=== PATIENT | female | born 1995 | race African-American/Black ===

== ENCOUNTER 2017-12-24 14:31 | Emergency (ER) | payer BC ==
[2017-12-24 15:51] LABS: #Eosinphils 0.3 thou/uL (0.0-0.7); #Lymphocytes 2.3 thou/uL (1.20-3.40); #Monocytes 0.4 thou/uL (0.11-0.59); #Neutrophils 4.3 thou/uL (1.40-6.50); %Basophils 0.6 % (0.0-1.0); %Eosinophils 3.7 % (0.0-10.0); %Lymphocytes 31.3 % (21.0-51.0); %Monocytes 5.7 % (0.0-10.0); %Neutrophils 58.7 % (42.0-75.0); Hemoglobin 9.9 g/dL (12.0-16.0); Mean Corpuscular HGB CONC 32.4 g/dL (32.0-36.0); Mean Corpuscular Hemoglobin 26.5 pg (27.0-31.0); Mean Corpuscular Volume 81.8 fL (78.0-98.0); Mean Platelet Volume 8.9 fL (7.4-10.4); Platelet Count 340 thou/uL (130-400); RBC Distribution Width 15.5 % (11.5-14.5); Red Blood Cell (RBC) Count 3.72 mill/uL (4.20-5.40); White Blood Cell (WBC) Count 7.3 thou/uL (4.8-10.8)
[2017-12-24 15:55] LABS: BHCG - Serum Negative (NEGATIVE); Pregs Control Background? CLEAR/WHITE (CLR/WHITE); Pregs Control Bar Appear? YES (CONTROL BAR)
[2017-12-24 16:26] LABS: Thyroid Stimulating Hormone 48.2557 uIU/mL (0.35-4.94)
--- NOTE | 2017-12-24 17:38 | ULT ---
ULTRASOUND PELVIC ULTRASOUND TRANSVAGINAL DOPPLER DUPLEX: 12/24/17 HISTORY: 22-year-old female with menometrorrhagia. Vaginal bleeding for two months. TECHNIQUE: Transabdominal transducer used to evaluate intrapelvic contents using the urinary bladder as an acous tic window. Endovaginal transducer used to visualize intrapelvic contents in greater detail. Color fl ow Doppler and Pulsed Doppler spectral waveform analysis of ovaries. FINDINGS: Uterus: 7 x 4 x 4.5 cm. Endometrial stripe: 1.1 cm (11 mm). Uterine fibroids: None identified. Right ovary: 3.3 x 3.0 x 2.9 cm. Left ovary: 3.4 x 2.2 x 2.4 cm. Blood flow demonstrated in both ovaries by doppler. 2.5 x 2.4 x 2.0 cm right ovarian cyst. 2 x 1.5 x 1.5 cm round hyperechoic, nonshadowing lesion in left ovary. Free fluid in the cul-de-sac: None. IMPRESSION: 1) 11 mm endometrial stripe. 2) 2.5 cm right ovarian cyst. 3) 2 cm hyperechoic mass in the left ovary. Differential diagnosis is endometrioma versus hemorrhagic ovarian cyst. Recommend followup pelvic and transvaginal ultrasound in six weeks. AUBREY Mancia POS: [facility]
[2017-12-27 13:19] LABS: Chlamydia by PCR Not Detected (NotDetected); GC by PCR Not Detected (NotDetected)
== END 2017-12-24 18:57 | disposition home or self-care (01) ==
LOC: ERS 14:31
DX: N93.9 Abnormal uterine and vaginal bleeding, unspecified (principal); D64.9 Anemia, unspecified; D62 Acute posthemorrhagic anemia; N76.0 Acute vaginitis; E03.9 Hypothyroidism, unspecified; N83.201 Unspecified ovarian cyst, right side
CPT/HCPCS: 36415; 76856; 84439; 84443; 84703; 85025; 86850; 86900; 86901; 87480; 87491; 87510; 87591; 87660

== ENCOUNTER 2018-08-07 22:54 | Observation (INO) | payer SELFPAY ==
--- NOTE | 2018-08-07 23:41 | RAD ---
EXAM: CHEST ONE VIEW: History: Dizziness, feeling faint. FINDINGS: Minimal cardiomegaly. No confluent pneumonia, overt edema, or pleural effusion. IMPRESSION: Minimal cardiomegaly. No acute intrathoracic disease. POS: [facility]
[2018-08-08 00:01] LABS: ALT (SGPT) 10 U/L (8-55); AST (SGOT) 12 U/L (5-34); Albumin 3.8 g/dL (3.5-5.0); Alkaline Phosphatase 53 U/L (40-150); Anion Gap 10 mmol/L (10-20); BUN (Urea Nitrogen) 11 mg/dL (7.0-18.7); Bilirubin, Total 0.4 mg/dL (0.2-1.2); Calc. Creatinine Clearance 0 mL/min (70-130); Calcium 8.8 mg/dL (7.8-10.44); Carbon Dioxide 24 mmol/L (22-29); Chloride 110 mmol/L (98-107); Estimated GFR-MDRD Greater than 90; Globulin 3.4 g/dL (2.4-3.5); Glucose 87 mg/dL (70-105); Potassium 3.9 mmol/L (3.5-5.1); Protein, Total 7.2 g/dL (6.0-8.3); Sodium 140 mmol/L (136-145)
[2018-08-08 00:02] LABS: #Basophils 0.1 thou/uL (0.0-0.2); #Eosinphils 0.3 thou/uL (0.0-0.7); #Monocytes 0.5 thou/uL (0.11-0.59); #Neutrophils 4.6 thou/uL (1.40-6.50); %Eosinophils 3.7 % (0.0-10.0); %Lymphocytes 35.4 % (21.0-51.0); %Monocytes 5.7 % (0.0-10.0); %Neutrophils 54.2 % (42.0-75.0); Anisocytosis MODERATE=16-30 cells (100X) (0-5/hpf); Elliptocytes SLIGHT = 2-5 cells (100X) (0-1/hpf); Hemoglobin 7.8 g/dL (12.0-16.0); MDiff Complete? YES; Mean Corpuscular HGB CONC 28.3 g/dL (32.0-36.0); Mean Corpuscular Volume 63.6 fL (78.0-98.0); Mean Platelet Volume 6.7 fL (7.4-10.4); Microcytosis SLIGHT = 6-15 cells (100X) (0-5/hpf); Platelet Count 374 thou/uL (130-400); RBC Distribution Width 19.5 % (11.5-14.5); Red Blood Cell (RBC) Count 4.31 mill/uL (4.20-5.40); Reflex for Review?? YES; White Blood Cell (WBC) Count 8.5 thou/uL (4.8-10.8)
[2018-08-08 00:22] LABS: CKMB 0.9 ng/mL (0-6.6)
[2018-08-08] MEDS ORDERED: Aspirin Chewable 81 MG TAB ONE (00:40)
[2018-08-08 03:17] VITALS: BMI 46.6
[2018-08-08 03:19] LABS: Troponin I 0.146 ng/mL (< 0.028)
[2018-08-08] MEDS ORDERED: Acetaminophen 325 MG TAB PO PRN (04:30)
[2018-08-08] MEDS ORDERED: Senokot S 8.6-50 MG TAB PO PRN (04:30)
[2018-08-08] MEDS ORDERED: Bisacodyl 5 MG TAB PO PRN (04:30)
--- NOTE | 2018-08-08 05:38 | HP ---
CHIEF COMPLAINT: Shortness of breath and palpitations. HISTORY OF PRESENT ILLNESS: The patient is a 22-year-old female with history of hypothyroidism and iron deficiency anemia, who presents to the hospital with complaints of shortness of breath and worsening palpitations. The patient stated that she has been off her medications, especially her Synthroid for quite a long time due to insurance purposes and she has been feeling on and off some shortness of breath and palpitations in the past. However, she states that today her palpitations got severe to the point that concerned her, so she came into the ER for further evaluation. She denies any chest tightness, any nausea, vomiting, or diarrhea. The patient states that her menstrual cycles have been regular since she has been on control. PAST MEDICAL HISTORY: She has a history of hypothyroidism and iron deficiency anemia. PAST SURGICAL HISTORY: Denies. FAMILY HISTORY: No history of heart disease or autoimmune disease. MEDICATIONS: She takes none. ALLERGIES: SHE HAS NO KNOWN DRUG ALLERGIES. REVIEW OF SYSTEMS: All negative except for the ones mentioned above in the HPI. SOCIAL HISTORY: She denies any smoking history, any recreational drug use, however, she does use occasional alcohol. PHYSICAL EXAMINATION: VITAL SIGNS: Temperature of 98.6, respirations 20, oxygen saturation 98% on room air, heart rate 62, blood pressure 145/88. GENERAL: She is awake, alert, and oriented x3. Does not appear in any distress. HEENT: Normocephalic, atraumatic. No lymphadenopathy noted. Pupils are equal and reactive to light. LUNGS: Clear to auscultation. No rhonchi or wheezes noted. ABDOMEN: Soft and nontender. Bowel sounds are present x2. EXTREMITIES: No edema. Pedal pulses are present x2. NEUROLOGIC: Neurovascular tabares, no focal deficits noted. SKIN: No cuts, lesions, or bruises noted. LABORATORY RESULTS: As of the following; WBCs of 8.5, hemoglobin of 7.8, hematocrit of 27.4, platelets of 374. Chemistry; sodium of 140, potassium of 3.9, BUN of 11, creatinine of 0.90. Her troponin was mildly elevated at 0.142. TSH was 48 and her test was negative. She did have a chest x-ray which indicated mild cardiomegaly. EKG did not indicate any acute ST elevation or ST depression. ASSESSMENT AND PLAN: The patient is a 22-year-old female who presents to the hospital with complaints of shortness of breath and palpitations. 1. Shortness of breath, most likely secondary to iron deficiency anemia and a combination of her hypothyroidism. Her TSH is 48. She may require some IV Synthroid for the time being. Also, she has received 1 unit of PRBC. We will monitor her H and H. I will also start her on some IV iron. I will also get an echocardiogram due to her trending of her troponins and this could be possibly most likely secondary to a combination of her uncontrolled hypothyroidism and her iron deficiency anemia. However, given some mild cardiomegaly noted on the chest x-ray, I will go ahead and order an echocardiogram. 2. Hypothyroidism. The patient has been educated on the importance of following up with her thyroid and also taking her medications. I did tell her that the medications cost only about 10 to 15 dollars on good prescriptions. 3. Microcytic anemia. Again, I will start her on some IV iron and also educated her on taking oral iron. Job ID: [id number]
[2018-08-08] MEDS ORDERED: Levothyroxine 175 MCG TAB PO SCH (06:00)
[2018-08-08] MEDS: Ferrous Sulfate 325 MG TAB PO SCH ×3 (08:05→17:01)
[2018-08-08 08:22] LABS: Troponin I 0.144 ng/mL (< 0.028)
[2018-08-08 10:44] LABS: Hemoglobin 8.7 g/dL (12.0-16.0); Platelet Count 342 thou/uL (130-400)
[2018-08-08] MEDS ORDERED: Ondansetron PF 4 MG/2 ML Vial IVP PRN (11:31)
[2018-08-08] MEDS ORDERED: Ondansetron ODT 4 MG TAB PO PRN (11:31)
[2018-08-08 19:52] VITALS: BP 133/85; TEMP 98.5
--- NOTE | 2018-08-09 10:41 | DIS ---
DATE OF ADMISSION: 08/08/2018 DATE OF DISCHARGE: 08/08/2018 CONSULTING PHYSICIANS: None. DISCHARGE DIAGNOSES: 1. Shortness of breath, resolved. 2. Iron-deficiency anemia. 3. Jessie thyroiditis. 4. Possible goiter. 5. Noncompliance with medications due to transition with employment/insurance. 6. Type 2 demand ischemia. HOSPITAL COURSE: Ms. Martinez is a 22-year-old woman, who presented due to complaints of shortness of breath. The patient has a known history of Jessie thyroiditis as well as iron-deficiency anemia. She has been off her medications for the last 3 to 4 weeks due to having a change in employment and being unable to fill her prescriptions due to a transition with her medical insurance. The patient states she has had issues with shortness of breath in the past. She underwent laboratory studies, which showed a hemoglobin of 7.8, therefore, received transfusion with 1 unit and was placed back on her iron. Her hemoglobin today was 8.7. She had a normal platelet count of 374. She was noted to have an elevated troponin of 0.144, 0.146, and 0.142. The patient never complained of chest pain, nausea, indigestion, abdominal pain or diaphoresis. No complaints of dizziness. Her shortness of breath had settled once she was brought up from the ED. In the emergency department, she did undergo an EKG, which showed a first-degree AV block, normal ST segments, normal T-waves, SC interval of 236, QRS duration of 78 msec. A repeat EKG was done and showed similar findings. The patient had a heart rate of 66 with no dynamic changes. Chest x-ray was done revealing cardiomegaly with no acute cardiopulmonary process. She was given aspirin because of the elevated troponin and an echocardiogram was requested by Dr. Alexander, The echocardiogram has been completed and showed an LVEF estimated at 55% to 60% with trace mitral regurgitation present and trace tricuspid regurgitation present. The patient again continued without complaints of chest pain throughout her hospital stay. No further cardiac investigations done. The patient did report a history of coronary artery disease in her grandfather in his 70s and her uncle in his 50s. She was advised to follow up with her primary care physician for further assessment and workup if deemed necessary. With regard to her shortness of breath, the patient states once starting back on the levothyroxine and iron, this seems to have improved. She has been able to mobilize to the bathroom without any difficulty. She was previously on levothyroxine 150 mcg, which has been increased to 175 mcg on admission. She has continued her regular dose of ferrous sulfate 325 mg p.o. 3 times a day. The patient's vital signs remained stable throughout her stay with normal heart rate and normal O2 sats as well as normal blood pressure. The patient remained afebrile. She is therefore medically cleared for discharge home with plans to follow up with her primary care physician. The patient did express concerns regarding her primary care physician and that she feels she has not made much progress with the continued management of her thyroid and plans to seek a second opinion. She also was concerned regarding her heavy menses given the iron-deficiency anemia. At present, she is not having any menstrual bleeding or any other source of bleeding. She plans to follow up with her civil drafter, though expressed some concern regarding her current civil drafter and plans to obtain a new one. REVIEW OF SYSTEMS: All other review of systems apart from those mentioned above in HPI are negative. She has not had any nausea or vomiting. No abdominal pain or cramping. No changes with her bowels. Denies having any diarrhea or constipation. No urinary symptoms. Denies having any chest pain, cough or hemoptysis. Shortness of breath has fully settled. All other review of systems are negative. PHYSICAL EXAMINATION: GENERAL: The patient appears obese, but well-developed and in no acute distress. She was very tearful at times when speaking about her current weight and inability to lose weight despite attempts to exercise and control her diet. She does plan to follow up with her primary care doctor. VITAL SIGNS: Temperature 98.5, pulse 65, respirations 15, O2 saturation 98% on room air, and blood pressure 133/85. HEENT: Normocephalic and atraumatic. Pupils are equal, round, and reactive to light. Sclerae are without icterus. Oropharynx is clear. NECK: Supple, but with enlarged thyroid. No nodularity present. No tenderness per se, but reports mild discomfort with palpation. LUNGS: Clear to auscultation bilaterally without wheezes, rales or rhonchi. CARDIAC: Regular rate and rhythm. ABDOMEN: Soft, obese, nontender, and nondistended. Normoactive bowel sounds present. EXTREMITIES: Without edema or calf swelling. NEUROLOGIC: Alert and oriented x3. SKIN: Without rash or jaundice. INVESTIGATIONS: As mentioned above in HPI. CONDITION: Stable at discharge. ACTIVITY: As tolerated. DIET: Heart healthy and iron rich. FOLLOWUP: The patient is advised to follow up with her primary care physician within one week for continued management of her iron-deficiency anemia and thyroid disease. She was also advised to discuss with primary care physician the need for cardiac evaluation and monitoring given her family history of coronary artery disease. She does have risk factors despite her young age. DISPOSITION: The patient is medically cleared for discharge home on August 08, 2018. The patient's case was discussed with Dr. Vo, who agrees upon care as described above. Job ID: [id number]
== END 2018-08-08 20:35 | disposition home or self-care (01) ==
LOC: ERS 22:54 → 2SW 08-08 00:50
PROVIDERS: ADMIT Internal Medicine; ATTEND Internal Medicine
DX: R06.02 Shortness of breath (principal); R00.2 Palpitations; E03.9 Hypothyroidism, unspecified; D50.9 Iron deficiency anemia, unspecified; I24.8 Other forms of acute ischemic heart disease; E06.3 Autoimmune thyroiditis; Z91.14 Patient's other noncompliance with medication regimen
CPT/HCPCS: 36415; 36430; 71045; 80053; 82553; 84439; 84443; 84484; 84702; 85014; 85018; 85025; 85049; 85060; 86850; 86900; 86901; 93005; 93306; G0378; P9016; Q0162

== ENCOUNTER 2018-08-19 23:08 | Emergency (ER) | payer SELFPAY ==
[2018-08-19 23:33] LABS: Hemoglobin 9.4 g/dL (12.0-16.0); Mean Corpuscular HGB CONC 28.9 g/dL (32.0-36.0); Mean Corpuscular Hemoglobin 20.1 pg (27.0-31.0); Mean Corpuscular Volume 69.4 fL (78.0-98.0); Mean Platelet Volume 6.7 fL (7.4-10.4); Platelet Count 434 thou/uL (130-400); RBC Distribution Width 25.4 % (11.5-14.5); Red Blood Cell (RBC) Count 4.67 mill/uL (4.20-5.40); White Blood Cell (WBC) Count 8.4 thou/uL (4.8-10.8)
[2018-08-19 23:51] LABS: #Basophils 0.1 thou/uL (0.0-0.2); #Eosinphils 0.2 thou/uL (0.0-0.7); #Lymphocytes 2.7 thou/uL (1.20-3.40); #Monocytes 0.5 thou/uL (0.11-0.59); #Neutrophils 4.9 thou/uL (1.40-6.50); %Basophils 0.9 % (0.0-1.0); %Eosinophils 2.3 % (0.0-10.0); %Lymphocytes 32.1 % (21.0-51.0); %Monocytes 5.8 % (0.0-10.0); %Neutrophils 58.9 % (42.0-75.0); ALT (SGPT) 13 U/L (8-55); AST (SGOT) 17 U/L (5-34); Alkaline Phosphatase 57 U/L (40-150); Anion Gap 11 mmol/L (10-20); Anisocytosis MODERATE=16-30 cells (100X) (0-5/hpf); BUN (Urea Nitrogen) 9 mg/dL (7.0-18.7); Bilirubin, Total 0.5 mg/dL (0.2-1.2); Calc. Creatinine Clearance 0 mL/min (70-130); Carbon Dioxide 24 mmol/L (22-29); Chloride 108 mmol/L (98-107); Estimated GFR-MDRD Greater than 90; Globulin 3.5 g/dL (2.4-3.5); Glucose 78 mg/dL (70-105); Hypochromia SLIGHT = 6-15 cells (100X) (0-5/hpf); Large Platelets SLIGHT; MDiff Complete? YES; Microcytosis SLIGHT = 6-15 cells (100X) (0-5/hpf); Platelet Morphology Comment Appears Increased; Potassium 3.8 mmol/L (3.5-5.1); Protein, Total 7.5 g/dL (6.0-8.3); Sodium 139 mmol/L (136-145); Tear Drops SLIGHT = 2-5 cells (100X) (0-1/hpf)
--- NOTE | 2018-08-19 23:55 | RAD ---
PORTABLE CHEST ONE VIEW: 08/19/18 at 11:43 p.m. HISTORY: Dyspnea. FINDINGS: Comparison made with the exam of 08/07/18. The heart size is borderline. The lungs are well expanded without focal areas of consolidation, pneum othoraces, acosta pulmonary edema or pleural effusions. IMPRESSION: No acute process. POS: [facility]
[2018-08-20 00:15] LABS: BHCG - Serum Negative (NEGATIVE); Pregs Control Background? CLEAR/WHITE (CLR/WHITE); Pregs Control Bar Appear? YES (CONTROL BAR)
[2018-08-20 00:23] LABS: Thyroid Stimulating Hormone 11.3817 uIU/mL (0.35-4.94)
[2018-08-20] MEDS ORDERED: Ondansetron PF 4 MG/2 ML Vial ONE (00:29)
== END 2018-08-20 01:06 | disposition home or self-care (01) ==
LOC: ERS 23:08
DX: R06.02 Shortness of breath (principal); D50.9 Iron deficiency anemia, unspecified; Z79.899 Other long term (current) drug therapy
CPT/HCPCS: 36415; 71045; 80053; 84443; 84703; 85025; 86850; 86870; 86900; 86901; 86905; 93005; J2405

== ENCOUNTER 2018-10-01 01:01 | Emergency (ER) | payer OTHER, SELFPAY ==
[2018-10-01] MEDS ORDERED: Ondansetron ODT 8 MG TAB ONE (01:32)
[2018-10-01 01:54] LABS: Bilirubin Negative (Negative); Blood, Urine Negative (Negative); Clarity CLEAR (Clear); Glucose, Urine (Dipstick) Negative (Negative); Leukocyte Negative (Negative); Nitrite Negative (Negative); Protein, Urine (Dipstick) Negative (Neg-Trace); Specific Gravity, Urine 1.031 (1.002-1.036); pH, Urine 6.5 (5.0-9.0)
[2018-10-01 01:54] LABS: #Basophils 0.1 thou/uL (0.0-0.2); #Eosinphils 0.2 thou/uL (0.0-0.7); #Lymphocytes 3.6 thou/uL (1.20-3.40); #Monocytes 0.6 thou/uL (0.11-0.59); #Neutrophils 6.3 thou/uL (1.40-6.50); %Basophils 0.9 % (0.0-1.0); %Eosinophils 2.2 % (0.0-10.0); %Lymphocytes 33.3 % (21.0-51.0); %Monocytes 5.6 % (0.0-10.0); %Neutrophils 57.9 % (42.0-75.0); Hemoglobin 10.8 g/dL (12.0-16.0); Mean Corpuscular HGB CONC 30.9 g/dL (32.0-36.0); Mean Corpuscular Hemoglobin 22.3 pg (27.0-31.0); Mean Corpuscular Volume 72.2 fL (78.0-98.0); Mean Platelet Volume 11.7 fL (7.4-10.4); Platelet Count 449 thou/uL (130-400); RBC Distribution Width 23.4 % (11.5-14.5); Red Blood Cell (RBC) Count 4.87 mill/uL (4.20-5.40); White Blood Cell (WBC) Count 10.9 thou/uL (4.8-10.8)
[2018-10-01 01:57] LABS: ALT (SGPT) 14 U/L (8-55); AST (SGOT) 13 U/L (5-34); Albumin 4.1 g/dL (3.5-5.0); Alkaline Phosphatase 64 U/L (40-150); Anion Gap 12 mmol/L (10-20); BUN (Urea Nitrogen) 8 mg/dL (7.0-18.7); Bilirubin, Total 0.4 mg/dL (0.2-1.2); Calc. Creatinine Clearance 0 mL/min (70-130); Carbon Dioxide 23 mmol/L (22-29); Chloride 107 mmol/L (98-107); Estimated GFR-MDRD Greater than 90; Globulin 3.7 g/dL (2.4-3.5); Glucose 72 mg/dL (70-105); Lipase 18 U/L (8-78); Potassium 3.7 mmol/L (3.5-5.1); Protein, Total 7.8 g/dL (6.0-8.3); Sodium 138 mmol/L (136-145)
[2018-10-01 01:57] LABS: Pregnancy Test - Urine (BHCG) Negative (Negative); Pregu Control Background? CLEAR/WHITE (CLR/WHITE); Pregu Control Bar Appear? YES (CONTROL BAR); Specific Gravity 1.031 (1.002-1.036)
== END 2018-10-01 03:00 | disposition home or self-care (01) ==
LOC: ERS 01:01
DX: R11.2 Nausea with vomiting, unspecified (principal); R19.7 Diarrhea, unspecified; D50.9 Iron deficiency anemia, unspecified; E03.9 Hypothyroidism, unspecified; Z79.899 Other long term (current) drug therapy
CPT/HCPCS: 36415; 80053; 81003; 81025; 83690; 85025; 99284

== ENCOUNTER 2019-01-09 13:48 | Emergency (ER) | payer OTHER, SELFPAY ==
--- NOTE | 2019-01-09 14:26 | RAD ---
XR Chest 1 View Portable HISTORY: Chest pain COMPARISON: 08/19/2018 FINDINGS: The heart size is normal. The lungs are well expanded without focal areas of consolidation, pneumothorax or pleural effusions. IMPRESSION: No radiographic evidence of acute cardiopulmonary process.
== END 2019-01-09 15:00 | disposition home or self-care (01) ==
LOC: ERS 13:48
DX: T54.91XA Toxic effect of unspecified corrosive substance, accidental (unintentional), initial encounter (principal); J68.0 Bronchitis and pneumonitis due to chemicals, gases, fumes and vapors; E03.9 Hypothyroidism, unspecified; Z79.899 Other long term (current) drug therapy
CPT/HCPCS: 71045

== ENCOUNTER 2019-01-10 22:59 | Emergency (ER) | payer SELFPAY ==
[2019-01-10 23:41] LABS: Hemoglobin 10.6 g/dL (12.0-16.0); Mean Corpuscular Hemoglobin 22.7 pg (27.0-31.0); Mean Corpuscular Volume 75.7 fL (78.0-98.0); Mean Platelet Volume 10.1 fL (7.4-10.4); Platelet Count 406 thou/uL (130-400); RBC Distribution Width 17.5 % (11.5-14.5); Red Blood Cell (RBC) Count 4.65 mill/uL (4.20-5.40); White Blood Cell (WBC) Count 8.7 thou/uL (4.8-10.8)
[2019-01-10 23:57] LABS: #Basophils 0.1 thou/uL (0.0-0.2); #Eosinphils 0.3 thou/uL (0.0-0.7); #Lymphocytes 2.6 thou/uL (1.20-3.40); #Monocytes 0.4 thou/uL (0.11-0.59); #Neutrophils 5.3 thou/uL (1.40-6.50); %Basophils 0.6 % (0.0-1.0); %Eosinophils 3.2 % (0.0-10.0); %Neutrophils 61.2 % (42.0-75.0)
[2019-01-11 00:05] LABS: ALT (SGPT) 8 U/L (8-55); AST (SGOT) 10 U/L (5-34); Albumin 3.8 g/dL (3.5-5.0); Alkaline Phosphatase 60 U/L (40-150); Anion Gap 9 mmol/L (10-20); BUN (Urea Nitrogen) 9 mg/dL (7.0-18.7); Bilirubin, Total 0.3 mg/dL (0.2-1.2); Calc. Creatinine Clearance 0 mL/min (70-130); Calcium 8.7 mg/dL (7.8-10.44); Carbon Dioxide 25 mmol/L (22-29); Chloride 107 mmol/L (98-107); Estimated GFR-MDRD Greater than 90; Globulin 3.5 g/dL (2.4-3.5); Glucose 96 mg/dL (70-105); Potassium 4.5 mmol/L (3.5-5.1); Protein, Total 7.3 g/dL (6.0-8.3); Sodium 136 mmol/L (136-145)
[2019-01-11 00:22] LABS: Free T4 (Free Thyroxine) 0.62 ng/dL (0.70-1.48)
[2019-01-11 00:26] LABS: BHCG - Serum Negative (NEGATIVE); Pregs Control Background? CLEAR/WHITE (CLR/WHITE); Pregs Control Bar Appear? YES (CONTROL BAR)
== END 2019-01-11 00:42 | disposition home or self-care (01) ==
LOC: ERS 22:59
DX: E03.9 Hypothyroidism, unspecified (principal); D50.9 Iron deficiency anemia, unspecified
CPT/HCPCS: 36415; 80053; 84439; 84443; 84703; 85025; 99283

== ENCOUNTER 2019-03-05 23:07 | Emergency (ER) | payer SELFPAY | END 2019-03-06 01:35 | disposition home or self-care (01) | LOC: ERS 23:07 | DX: J02.9 Acute pharyngitis, unspecified (principal); D50.9 Iron deficiency anemia, unspecified; E03.9 Hypothyroidism, unspecified; Z79.899 Other long term (current) drug therapy | CPT/HCPCS: 87081; 87430; 87804 ==

== ENCOUNTER 2019-03-08 10:20 | Emergency (ER) | payer SELFPAY ==
[2019-03-08] MEDS ORDERED: Oxymetazoline HCl 0.05% ( 15 ML ) NASAL SCH (10:45)
== END 2019-03-08 12:03 | disposition home or self-care (01) ==
LOC: ERS 10:20
DX: R04.0 Epistaxis (principal); D50.9 Iron deficiency anemia, unspecified; E03.9 Hypothyroidism, unspecified; Z79.899 Other long term (current) drug therapy
CPT/HCPCS: 99283

== ENCOUNTER 2019-03-08 15:01 | Emergency (ER) | payer SELFPAY ==
[2019-03-08] MEDS ORDERED: Iopamidol-370 76% 500 ML 1 ML ONE (15:23)
[2019-03-08] MEDS ORDERED: Ondansetron PF 4 MG/2 ML Vial ONE (15:25)
[2019-03-08] MEDS ORDERED: Ondansetron ODT 4 MG TAB ONE (15:26)
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
== END 2019-03-08 16:22 | disposition home or self-care (01) ==
LOC: ERS 15:01
DX: D28.7 Benign neoplasm of other specified female genital organs (principal); D50.9 Iron deficiency anemia, unspecified; E03.9 Hypothyroidism, unspecified; Z79.899 Other long term (current) drug therapy
CPT/HCPCS: 74177; J2405; Q0162; Q9967

== ENCOUNTER 2020-06-01 14:44 | Emergency (ER) | payer OTHER, MEDICAID ==
[2020-06-01 15:26] LABS: #Basophils 0.1 thou/uL (0.0-0.2); #Eosinphils 0.1 thou/uL (0.0-0.7); #Lymphocytes 2.2 thou/uL (1.20-3.40); #Monocytes 0.5 thou/uL (0.11-0.59); #Neutrophils 4.5 thou/uL (1.40-6.50); %Basophils 1.2 % (0.0-1.0); %Eosinophils 1.5 % (0.0-10.0); %Lymphocytes 29.9 % (21.0-51.0); %Monocytes 6.4 % (0.0-10.0); Hemoglobin 11.1 g/dL (12.0-16.0); Mean Corpuscular HGB CONC 30.4 g/dL (32.0-36.0); Mean Corpuscular Hemoglobin 22.6 pg (27.0-31.0); Mean Corpuscular Volume 74.3 fL (78.0-98.0); Mean Platelet Volume 9.9 fL (7.4-10.4); Platelet Count 392 thou/uL (130-400); RBC Distribution Width 16.8 % (11.5-14.5); White Blood Cell (WBC) Count 7.4 thou/uL (4.8-10.8)
[2020-06-01 15:43] LABS: Anisocytosis SLIGHT = 6-15 cells (100X) (0-5/hpf); Hypochromia SLIGHT = 6-15 cells (100X) (0-5/hpf); MDiff Complete? YES; Microcytosis SLIGHT = 6-15 cells (100X) (0-5/hpf); Ovalocytes SLIGHT = 2-5 cells (100X) (0-1/hpf); Platelet Morphology Comment Appears Adequate; Polychromasia SLIGHT = 2-3 cells (100X) (0-2/hpf)
--- NOTE | 2020-06-01 16:42 | ULT ---
ULTRASOUND PELVIC ULTRASOUND TRANSVAGINAL DOPPLER DUPLEX: DATE: 06/01/2020 HISTORY: First trimester vaginal bleeding in 24-year-old female TECHNIQUE: Transabdominal transducer and endovaginal transducer used to visualize intrapelvic contents with jones scale, color-flow, and spectral analysis. FINDINGS: Intrauterine gestational sac containing: Yolk sac Embryonic pole. Ursine-rump length: 0.5 cm: 6 W-2 D heart rate: 135 bpm No subchorionic hemorrhage. Little or no free fluid in the cul-de-sac Right ovary normal size. No corpus luteal cyst visualized in right ovary. Flow demonstrated. Left ovary not visualized IMPRESSION: Live first trimester intrauterine gestation estimated to be 6 weeks 2 days gestational age.
[2020-06-01 17:06] LABS: Bacteria/HPF None Seen HPF (None Seen); Bilirubin Negative (Negative); Blood, Urine Negative (Negative); Clarity Clear (Clear); Glucose, Urine (Dipstick) Normal (Negative); Ketone, Urine 10 mg/dL (Negative); Leukocyte 75 Leu/uL (Negative); Nitrite Negative (Negative); Protein, Urine (Dipstick) 20 mg/dL (Neg-Trace); Specific Gravity, Urine 1.031 (1.002-1.036); Urobilinogen 3 mg/dL (Less than 2); pH, Urine 7.5 (5.0-9.0)
== END 2020-06-01 19:15 | disposition home or self-care (01) ==
LOC: ERS 14:44
DX: O23.41 Unspecified infection of urinary tract in pregnancy, first trimester (principal); O20.9 Hemorrhage in early pregnancy, unspecified; O99.281 Endocrine, nutritional and metabolic diseases complicating pregnancy, first trimester; E03.9 Hypothyroidism, unspecified; O99.011 Anemia complicating pregnancy, first trimester; D50.9 Iron deficiency anemia, unspecified; Z3A.01 Less than 8 weeks gestation of pregnancy
CPT/HCPCS: 36415; 76856; 81003; 81015; 84702; 85025; 86850; 86900; 86901

== ENCOUNTER 2022-05-16 22:28 | Emergency (ER) | payer OTHER ==
[2022-05-16] MEDS ORDERED: Dexamethasone 10 MG/ML VIAL ONE (23:36)
== END 2022-05-17 01:37 | disposition home or self-care (01) ==
LOC: ERS 22:28
DX: J02.9 Acute pharyngitis, unspecified (principal); E03.9 Hypothyroidism, unspecified
CPT/HCPCS: 87081; 87430; 99283; J1100

== ENCOUNTER 2023-11-09 07:31 | Outpatient (CLI) | payer OTHER | END 2023-11-09 07:32 | disposition home or self-care (01) | LOC: BICULT 07:31 | PROVIDERS: ATTEND Family Medicine | DX: E04.9 Nontoxic goiter, unspecified (principal) | CPT/HCPCS: 76536 ==

== ENCOUNTER 2024-01-03 14:15 | Outpatient (CLI) | payer OTHER | END 2024-01-03 14:16 | disposition home or self-care (01) | LOC: BICULT 14:15 | PROVIDERS: ATTEND Advanced Practice Midwife | DX: N92.1 Excessive and frequent menstruation with irregular cycle (principal); N83.202 Unspecified ovarian cyst, left side | CPT/HCPCS: 76856 ==

== ENCOUNTER 2024-01-31 13:55 | Outpatient (CLI) | payer OTHER | END 2024-01-31 13:56 | disposition home or self-care (01) | LOC: BICULT 13:55 | PROVIDERS: ATTEND Advanced Practice Midwife | DX: N83.202 Unspecified ovarian cyst, left side (principal) | CPT/HCPCS: 76856 ==

== ENCOUNTER 2024-04-06 09:53 | Emergency (ER) | payer OTHER ==
[2024-04-06 10:35] LABS: #Basophils 0.03 10x3/uL (0.0-0.2); %Basophils 0.5 % (0.0-1.0); %Eosinophils 3.2 % (0.0-10.0); %Lymphocytes 35.4 % (21.0-51.0); %Monocytes 6.4 % (0.0-10.0); %Neutrophils 54.5 % (42.0-75.0); Hematocrit 38.9 % (36.0-47.0); Hemoglobin 11.7 g/dL (12.0-16.0); Mean Corpuscular HGB CONC 30.1 g/dL (32.0-36.0); Mean Corpuscular Hemoglobin 24.2 pg (27.0-31.0); Mean Corpuscular Volume 80.5 fL (78.0-98.0); Platelet Count 348 10x3/uL (130-400); RBC Distribution Width 16.9 % (11.5-14.5); Red Blood Cell (RBC) Count 4.83 mill/uL (4.20-5.40)
[2024-04-06 10:38] LABS: BHCG - Serum Negative (NEGATIVE)
[2024-04-06 10:39] LABS: Pregs Control Background? CLEAR/WHITE (CLR/WHITE); Pregs Control Bar Appear? YES (CONTROL BAR)
[2024-04-06 11:17] LABS: Bacteria/HPF None Seen HPF (None Seen); Bilirubin Negative (Negative); Blood, Urine Trace (Negative); CAUTI Indications for Culture Pelvic or flank pain; Clarity Clear (Clear); Glucose, Urine (Dipstick) Normal (Negative); Ketone, Urine Trace mg/dL (Negative); Leukocyte Negative Leu/uL (Negative); Nitrite Negative (Negative); Protein, Urine (Dipstick) Negative (Neg-Trace); RBC/HPF 0-3 HPF (0-3); Specific Gravity, Urine 1.025 (1.002-1.036); Squamous Epithelial 0-3 HPF (0-3); WBC/HPF 0-3 HPF (0-3)
[2024-04-06 11:27] LABS: Urine Culture Reflex No No
[2024-04-06] MEDS ORDERED: Ketorolac Tromethamine 30 MG (1 mL) VIAL ONE (11:36)
[2024-04-06 11:45] LABS: ALT (SGPT) 23 U/L (8-55); AST (SGOT) 22 U/L (5-34); Albumin 3.4 g/dL (3.5-5.0); Alkaline Phosphatase 52 U/L (40-110); Anion Gap 14 mmol/L (10-20); BUN (Urea Nitrogen) 8 mg/dL (7.0-18.7); Bilirubin, Total 0.4 mg/dL (0.2-1.2); Calc. Creatinine Clearance 0 mL/min (70-130); Calcium 8.8 mg/dL (7.8-10.44); Carbon Dioxide 19 mmol/L (22-29); Chloride 110 mmol/L (98-107); Estimated GFR 107; Globulin 4.2 g/dL (2.4-3.5); Glucose 83 mg/dL (70-105); Potassium 4.4 mmol/L (3.5-5.1); Protein, Total 7.6 g/dL (6.0-8.3); Sodium 139 mmol/L (136-145)
== END 2024-04-06 16:32 ==
LOC: ERS 09:53
DX: N93.9 Abnormal uterine and vaginal bleeding, unspecified (principal); Z53.21 Procedure and treatment not carried out due to patient leaving prior to being seen by health care provider; E03.9 Hypothyroidism, unspecified; Z79.899 Other long term (current) drug therapy
CPT/HCPCS: 36415; 76856; 80053; 81001; 84443; 84703; 85025; 96372; J1885